=== PATIENT | female | born 1985 | race Caucasian/White ===

== ENCOUNTER → 2017-10-31 | Outpatient (CLI) | payer OTHER ==
[~2017-10-31] VITALS: Ht 170.2 cm; Wt 113.4 kg
[~2017-10-31] MED LIST: AMOXICILLIN500 MG PO; CYANOCOBAL1000 MCG/2 IM; CYANOCOBALAM1000 MCG PO; DEPO ESTRADIO5 MG/ML IM; GLUCOPHAGE XR,500 MG PO; IBUPROFEN800 MG PO; LEVOTHYROXINE50 MCG PO; MEDROXYPRO150 MG/1 M IM; MOTRIN800 MG PO; NORCO 5/3251 TABLET PO; PRENATAL TABLE1 EACH PO; VITAMIN C1000 MG PO; ZESTORETIC 20-1 EAC2 PO
== END | disposition home or self-care (01) ==
LOC: AMB 12:41
PROVIDERS: Specialist
PROC: 0W3P8ZZ Control Bleeding in Gastrointestinal Tract, Via Natural or Artificial Opening Endoscopic (ICD-10-PCS; principal; 2017-10-31)
DX: K31.819 Angiodysplasia of stomach and duodenum without bleeding (principal); K44.9 Diaphragmatic hernia without obstruction or gangrene; I10 Essential (primary) hypertension; E11.9 Type 2 diabetes mellitus without complications; D50.9 Iron deficiency anemia, unspecified; F17.210 Nicotine dependence, cigarettes, uncomplicated
CPT/HCPCS: 82948; J3010

== ENCOUNTER 2017-11-10 16:19 | Emergency (ER) | payer OTHER ==
[~2017-11-10] VITALS: Ht 170.2 cm; Wt 113.8 kg
[2017-11-10 16:51] LABS: HEMATOCRIT 39.1 % (36.0-46.0); HEMOGLOBIN 13.4 G/DL (11.9-15.5); MCH 28.3 PG (29.0-34.0); MCHC 34.3 G/DL (30.0-36.0); MCV 82.5 FL (83-99); PLATELET COUNT 357 K/uL (156-360); RBC DIS.WIDTH-CV 14.2 % (11.8-14.6); RBC DIS.WIDTH-SD 42.3 % (39-53); RED BLOOD COUNT 4.74 M/uL (3.80-5.20); WHITE BLOOD COUNT 12.6 K/uL (4.1-10.2)
[2017-11-10 17:02] LABS: CHLORIDE 106 mEq/L (99-109); POTASSIUM 4.2 mEq/L (3.7-5.4); SODIUM 140 mEq/L (136-147)
[2017-11-10 17:04] LABS: GLUCOSE 113 mg/dL (70-99)
[2017-11-10 17:08] LABS: CREATININE 0.8 mg/dL (0.6-1.3); GFR ESTIMATE (CALCULATED) > 59 mL/min/; UREA NITROGEN (BUN) 12 mg/dL (9-23)
[2017-11-10 18:18] VITALS: BP 120/76
== END 2017-11-10 18:23 | disposition home or self-care (01) ==
LOC: EME 16:19
DX: K92.2 Gastrointestinal hemorrhage, unspecified (principal); R53.83 Other fatigue; R10.9 Unspecified abdominal pain; Z98.890 Other specified postprocedural states; I10 Essential (primary) hypertension; E11.9 Type 2 diabetes mellitus without complications; Z79.84 Long term (current) use of oral hypoglycemic drugs; F17.200 Nicotine dependence, unspecified, uncomplicated
CPT/HCPCS: 80048; 85027; 86850; 86900; 86901